=== PATIENT | female | born 1960 | race Caucasian/White ===

== ENCOUNTER → 2017-03-18 | Outpatient (CLI) | payer OTHER ==
--- NOTE | 2017-03-18 12:54 | REPMRS ---
Patient History The patient states she had a clinical breast exam in March 2017. Patient is postmenopausal and has history of other cancer at age 38. Family history of unknown cancer in father at age 50 or over, unknown cancer in maternal aunt at age 70, breast cancer in maternal aunt at age 80, and unknown cancer in paternal grandmother at age 40. Benign excisional biopsy of the left breast. Took hormonal contraceptives for 7 years. Took estrogen for 6 months. Digital Mammo Screening Bilat: March 18, 2017 - Exam #: [id number] Bilateral CC and MLO view(s) were taken. Technologist: Wanda Oleary, Technologist Prior study comparison: December 13, 2015, digital bilateral screening mammo, performed at [facility]. June 14, 2014, bilateral bilat screen digital mammo, performed at [facility] June 09, 2013, bilateral bilat screen digital mammo, performed at [facility] ([facility] FINDINGS: There are scattered fibroglandular densities. There has been no change in the appearance of the mammogram from the prior studies. There is a mild amount of scattered fibroglandular density which is fairly symmetric. There is no interval development of dominant mass, architectural distortion, or clustered microcalcification suggestive of malignancy. ASSESSMENT: BI-RADS/ACR category 1 mammogram. Negative. Recommendation Routine screening mammogram in 1 year (for women over age 40). This mammogram was interpreted with the aid of an FDA-approved computer-aided dectection system. Electronically Signed By: Dale House MD 03/18/17 [id number]
== END ==
LOC: M RAD 10:54
PROVIDERS: ATTEND Internal Medicine
DX: Z12.31 Encounter for screening mammogram for malignant neoplasm of breast (principal); Z92.0 Personal history of contraception

== ENCOUNTER → 2018-05-19 | Outpatient (CLI) | payer OTHER | LOC: M WHC 15:29 | DX: M85.80 Other specified disorders of bone density and structure, unspecified site (principal) | CPT/HCPCS: 77080 ==

== ENCOUNTER → 2019-05-03 | Outpatient (CLI) | payer OTHER ==
--- NOTE | 2019-05-04 08:55 | REP ---
MRI LEFT SHOULDER: TECHNIQUE: Axial T2 fat sat, gradient echo, sagittal oblique T2 fat sat, coronal oblique T1, T2 fat sat. There is increased signal involving the subscapularis tendon on T2-weighted images compatible with a moderate degree of tendinopathy and likely a partial tear. There is mild surrounding fluid. There is mild tendinopathy of the supraspinatus tendon. There is mild hypertrophic degenerative change of the acromioclavicular joint with downward sloping of the acromion, which is type 1. Biceps tendon is within the bicipital groove without significant tenosynovitis. There is no Hill-Sachs deformity. No abnormal signal is seen in the deltoid muscle. There is fraying of the biceps labral complex. There may be a tear of the anterior aspect of the inferior labrum. There is mild chondromalacia of the glenohumeral joint. Mild subchondral marrow edema is seen in the acromion along the acromioclavicular joint. There is a relatively normal amount of joint fluid. IMPRESSION: Moderate subscapularis tendinopathy with a partial tear. Mild supraspinatus tendinopathy. Mild hypertrophic degenerative changes of acromioclavicular joint with downward sloping of a type 1 acromion. There is fraying at the biceps labral complex. There may be a tear of the anterior aspect of the inferior labrum. Electronically Signed by Seth Schwartz MD 05/04/2019 12:31 P
== END ==
LOC: M RAD 17:14
PROVIDERS: ATTEND Orthopaedic Surgery Sports Medicine
DX: M65.812 Other synovitis and tenosynovitis, left shoulder (principal); M19.012 Primary osteoarthritis, left shoulder

== ENCOUNTER → 2019-05-07 | Outpatient (CLI) | payer OTHER ==
--- NOTE | 2019-05-07 17:05 | REPMRS ---
Patient History The patient states she had a clinical breast exam in March 2019. Family history of breast cancer at age 80 in maternal aunt, unknown cancer at age 50 or over in father, unknown cancer at age 40 in paternal grandmother, unknown cancer at age 70 in maternal aunt. Benign excisional biopsy of the left breast. Took hormonal contraceptives for 7 years. Took estrogen for 6 months. 3D TOMOSYNTHESIS WAS PERFORMED. Digital Mammo Screening Bilat: May 07, 2019 - Exam #: [id number] Bilateral CC and MLO view(s) were taken. Technologist: Patsy Ambrose, Technologist Prior study comparison: May 06, 2018, bilateral digital mammo screening bilat performed at [facility]. March 18, 2017, bilateral digital mammo screening bilat performed at [facility]. FINDINGS: There are scattered fibroglandular densities. There has been no change in the appearance of the mammogram from the prior studies. There is a mild amount of residual fibroglandular tissue which is fairly symmetric. There is no interval development of dominant mass, architectural distortion, or clustered microcalcification suggestive of malignancy. Assessment: BI-RADS/ACR category 1 mammogram. Negative Mammogram. Recommendation Routine screening mammogram in 1 year (for women over age 40). This mammogram was interpreted with the aid of an FDA-approved computer-aided dectection system. Electronically Signed By: Seth Schwartz MD 05/07/19 [id number]
== END ==
LOC: M RAD 13:28
PROVIDERS: ATTEND Internal Medicine
DX: Z12.31 Encounter for screening mammogram for malignant neoplasm of breast (principal); Z80.3 Family history of malignant neoplasm of breast

== ENCOUNTER → 2020-06-08 | Outpatient (CLI) | payer OTHER ==
--- NOTE | 2020-06-08 17:00 | REPMRS ---
Patient History The patient states she had a clinical breast exam in 2019. Family history of breast cancer at age 80 in maternal aunt, unknown cancer at age 50 or over in father, unknown cancer at age 40 in paternal grandmother, unknown cancer at age 70 in maternal aunt. Benign excisional biopsy of the left breast. Took hormonal contraceptives for 7 years. Took estrogen for 6 months. 3D TOMOSYNTHESIS WAS PERFORMED. [facility] lifetime risk for breast cancer is 8.5%. VOLPARA DENSITY A. Digital Woman Screen Mammo: June 08, 2020 - Exam #: [id number] Bilateral CC and MLO view(s) were taken. Technologist: Kimberly Foster, Technologist Prior study comparison: May 07, 2019, bilateral digital mammo screening bilat, performed at [facility]. May 06, 2018, bilateral digital mammo screening bilat, performed at [facility]. FINDINGS: There are scattered fibroglandular densities. There has been no change in the appearance of the mammogram from the prior studies. There is a mild amount of residual fibroglandular tissue which is fairly symmetric. There is no interval development of dominant mass, architectural distortion, or clustered microcalcification suggestive of malignancy. Assessment: BI-RADS/ACR category 1 mammogram. Negative Mammogram. Recommendation Routine screening mammogram in 1 year (for women over age 40). This mammogram was interpreted with the aid of an FDA-approved computer-aided dectection system. Electronically Signed By: Seth Schwartz MD 06/08/20 [id number]
== END ==
LOC: M WHC 15:58
PROVIDERS: ATTEND Internal Medicine
DX: Z12.31 Encounter for screening mammogram for malignant neoplasm of breast (principal); Z80.9 Family history of malignant neoplasm, unspecified

== ENCOUNTER → 2020-07-06 | Outpatient (REF) | payer OTHER | LOC: M LAB REF 14:05 | PROVIDERS: ATTEND Internal Medicine | DX: E66.09 Other obesity due to excess calories (principal); M85.80 Other specified disorders of bone density and structure, unspecified site ==

== ENCOUNTER → 2021-04-26 | Outpatient (REF) | payer OTHER | LOC: M LAB REF 11:15 | PROVIDERS: ATTEND Internal Medicine | DX: R74.8 Abnormal levels of other serum enzymes (principal) ==

== ENCOUNTER → 2021-05-08 | Outpatient (REF) | payer OTHER | LOC: M LAB REF 16:24 | PROVIDERS: ATTEND Internal Medicine | DX: R74.8 Abnormal levels of other serum enzymes (principal) ==

== ENCOUNTER → 2021-09-13 | Outpatient (REF) | payer OTHER | LOC: M LAB REF 11:34 | PROVIDERS: ATTEND Internal Medicine | DX: R94.5 Abnormal results of liver function studies (principal) ==

== ENCOUNTER → 2021-09-20 | Outpatient (CLI) | payer OTHER ==
--- NOTE | 2021-09-20 12:40 | REPMRS ---
Patient History The patient states she had a clinical breast exam in August 2021. Patient is postmenopausal and has history of other cancer at age 38. Family history of breast cancer at age 80 in maternal aunt, unknown cancer at age 50 or over in father, unknown cancer at age 40 in paternal grandmother, unknown cancer at age 70 in maternal aunt. Benign excisional biopsy of the left breast. Took hormonal contraceptives for 7 years. Took estrogen for 6 months. Tomosynthesis is performed. Volpara breast density is a. [facility] lifetime risk of breast cancer 8.2%. Moderna vaccine 01/31/21 left arm. 02/28/21 left arm. 20 lb intentional weight loss. Patient states no breast complaints today. Patient has signed MRS History Sheet. Digital Woman Screen Mammo: September 20, 2021 - Exam #: [id number] Bilateral CC and MLO view(s) were taken. Technologist: RT Marino Prior study comparison: June 08, 2020, bilateral digital woman screen mammo performed at [facility]. May 07, 2019, bilateral digital mammo screening bilat, performed at [facility]. FINDINGS: There are scattered fibroglandular densities. There has been no change in the appearance of the mammogram from the prior studies. There is a mild amount of residual fibroglandular tissue which is fairly symmetric. There is no interval development of dominant mass, architectural distortion, or clustered microcalcification suggestive of malignancy. Assessment: BI-RADS/ACR category 1 mammogram. Negative Mammogram. Recommendation Routine screening mammogram in 1 year (for women over age 40). This mammogram was interpreted with the aid of an FDA-approved computer-aided dectection system. Electronically Signed By: Seth Schwartz MD 09/20/21 [id number]
== END ==
LOC: M WHC 11:28
PROVIDERS: ATTEND Internal Medicine
DX: Z12.31 Encounter for screening mammogram for malignant neoplasm of breast (principal)

== ENCOUNTER 2022-05-31 11:34 | Inpatient (IN) | payer OTHER ==
[~2022-05-31] VITALS: Ht 167.6 cm; Wt 100.0 kg
[2022-05-31] MEDS ORDERED: ASMA16.7 INH (11:51)
[2022-05-31] MEDS ORDERED: MONT10TA97 PO (11:51)
[2022-05-31] MEDS ORDERED: SERT50TA29 PO (11:51)
[2022-05-31] MEDS ORDERED: PERCOCET 5MG/325MG TAB PO ONE (12:55)
[2022-05-31 14:08] LABS: RSV AMPLIFICATION NEGATIVE (NEGATIVE)
[2022-05-31] MEDS ORDERED: CETIRIZINE (ZyrTEC) 10 MG TAB PO ONE (14:35)
[2022-05-31] MEDS ORDERED: PROB250C PO (14:40)
[2022-05-31] MEDS ORDERED: IBUP200C27 PO (14:40)
[2022-05-31] MEDS ORDERED: FLUTISP NARES (14:40)
[2022-05-31] MEDS ORDERED: ACET-907 PO (14:40)
[2022-05-31] MEDS ORDERED: VITA100T59 PO (14:40)
[2022-05-31] MEDS ORDERED: ZINC1TAB2 PO (14:40)
[2022-05-31] MEDS ORDERED: VITA100093 PO (14:40)
[2022-05-31] MEDS ORDERED: HOME MED LIST COMPLETE! XX SCH (14:45)
[2022-05-31 15:14] LABS: HEMATOCRIT 41.9 % (36.0-47.0); HEMOGLOBIN 13.4 g/dl (12.0-15.5); MEAN CORPUSCULAR HEMOGLOBIN 30.3 pg (27.0-33.0); MEAN CORPUSCULAR VOLUME 94.8 fl (80.0-96.0); PLATELET COUNT, AUTOMATED 355 10^3/uL (150-450); RED BLOOD COUNT 4.42 10^6/uL (4.00-5.40); WHITE BLOOD COUNT 9.5 10^3/uL (4.0-10.0)
[2022-05-31 15:40] LABS: BLOOD UREA NITROGEN 9 MG/DL (7-18); CARBON DIOXIDE LEVEL 29 MEQ/L (21-32); CHLORIDE LEVEL 108 MEQ/L (98-107); CREATININE FOR GFR 0.65 MG/DL (0.55-1.30); GLOMERULAR FILTRATION RATE > 60.0 (>45); GLUCOSE, FASTING 106 MG/DL (70-100); POTASSIUM SERUM 3.8 MEQ/L (3.5-5.1); SODIUM LEVEL 144 MEQ/L (136-145)
[2022-05-31 16:30] VITALS: BP 114/65
[2022-05-31] MEDS: ACETAMINOPHEN 500 MG TAB PO SCH ×2 (17:04→20:15)
[2022-05-31] MEDS: oxyCODONE 5MG TAB PO PRN (18:33)
[2022-05-31] MEDS: MONTELUKAST 10 MG TAB PO SCH (20:13)
[2022-05-31 20:30] VITALS: BP 116/65
[2022-05-31] MEDS ORDERED: ALBUTEROL 90 MCG/ACT 8GM HFA INHALER INH PRN (21:55)
[2022-06-01] MEDS: oxyCODONE 5MG TAB PO PRN ×4 (02:07→13:06)
[2022-06-01 05:39] VITALS: BP 117/66
[2022-06-01 06:31] LABS: HEMOGLOBIN 13.2 g/dl (12.0-15.5); MEAN CORPUSCULAR HEMOGLOBIN 31.2 pg (27.0-33.0); MEAN CORPUSCULAR HGB CONC 32.2 g/dl (32.0-36.5); MEAN CORPUSCULAR VOLUME 96.9 fl (80.0-96.0); PLATELET COUNT, AUTOMATED 294 10^3/uL (150-450); RED BLOOD COUNT 4.23 10^6/uL (4.00-5.40); WHITE BLOOD COUNT 7.6 10^3/uL (4.0-10.0)
[2022-06-01 06:43] LABS: INR 0.92; PROTHROMBIN TIME 12.8 SECONDS (12.7-14.5)
[2022-06-01 06:57] LABS: ALBUMIN 2.9 GM/DL (3.2-5.2); ALT/SGPT 16 U/L (12-78); BILIRUBIN,TOTAL 0.6 MG/DL (0.2-1.0); BLOOD UREA NITROGEN 10 MG/DL (7-18); CALCIUM LEVEL 8.5 MG/DL (8.8-10.2); CARBON DIOXIDE LEVEL 25 MEQ/L (21-32); CHLORIDE LEVEL 111 MEQ/L (98-107); CREATININE FOR GFR 0.58 MG/DL (0.55-1.30); GLOMERULAR FILTRATION RATE > 60.0 (>45); GLUCOSE, FASTING 108 MG/DL (70-100); POTASSIUM SERUM 3.9 MEQ/L (3.5-5.1); SODIUM LEVEL 144 MEQ/L (136-145); TOTAL PROTEIN 6.2 GM/DL (6.4-8.2)
[2022-06-01] MEDS: ACETAMINOPHEN 500 MG TAB PO SCH ×3 (07:47→20:26)
[2022-06-01] MEDS ORDERED: MORPHINE 4 MG/ML 1ML VIAL/SYRINGE IV PRN (08:50)
[2022-06-01] MEDS ORDERED: ENOXAPARIN 40MG/0.4ML SYRINGE (J1650 PER 10MG) SC SCH (09:00)
[2022-06-01] MEDS ORDERED: fentaNYL 250 MCG/5 ML INJECTION As Ordered ONE (09:45)
[2022-06-01] MEDS ORDERED: MIDAZOLAM INJ 2MG/2ML VIAL (J2250 PER 1MG) As Ordered ONE (09:45)
[2022-06-01] MEDS ORDERED: ROCURONIUM BROMIDE 50 MG/5 ML VIAL As Ordered ONE (09:46)
[2022-06-01] MEDS ORDERED: propofoL 200 MG/20 ML VIAL As Ordered ONE ×2 (09:48→11:42)
[2022-06-01] MEDS ORDERED: LIDOCAINE 2% INJ 100 MG/5 ML SYRINGE As Ordered ONE (09:48)
[2022-06-01] MEDS ORDERED: dexameTHASONE 4 MG/ML 1ML VIAL (J1100 PER 1MG) As Ordered ONE (09:49)
[2022-06-01] MEDS ORDERED: ACETAMINOPHEN 1000MG 100ML IV BTL (OFIRMEV) (J0131 PER 10MG) As Ordered ONE (09:50)
[2022-06-01] MEDS ORDERED: BUPIVACAINE HCL 0.25% 10ML VIAL As Ordered ONE (10:20)
[2022-06-01] MEDS ORDERED: BUPIVACAINE LIPOSOME/PF 1.3% 20ML VIAL (13.3MG/ML)(EXPAREL) As Ordered ONE (10:20)
[2022-06-01] MEDS ORDERED: ceFAZolin 2 GM/D5W 50 ML IV BAG (J0690 PER 500MG) As Ordered ONE (10:20)
[2022-06-01] MEDS ORDERED: KETOROLAC 60MG 2ML VIAL As Ordered ONE (11:32)
[2022-06-01] MEDS ORDERED: ONDANSETRON 4MG 2ML VIAL As Ordered ONE (11:33)
[2022-06-01] MEDS ORDERED: SUGAMMADEX SODIUM 500 MG/5 ML VIAL (BRIDION) As Ordered ONE (11:37)
[2022-06-01] MEDS ORDERED: ONDANSETRON 4MG 2ML VIAL IV PRN (12:10)
[2022-06-01] MEDS ORDERED: HYDROMORPHONE HCL 0.5 MG/ 0.5 ML SYRINGE (J1170 PER 1) IV PRN (12:10)
[2022-06-01] MEDS ORDERED: LR 1,000 ML IV SCH (12:10)
[2022-06-01] MEDS: fentaNYL 100 MCG/2 ML INJECTION IV PRN ×3 (12:31→12:53)
[2022-06-01] MEDS ORDERED: fentaNYL 100 MCG/2 ML INJECTION As Ordered ONE (12:32)
[2022-06-01 13:23] VITALS: BP 140/79
[2022-06-01 14:00] VITALS: BP 133/75
[2022-06-01] MEDS: FLUTICASONE PROP 0.05% NASAL SPRAY 16 GM (FLONASE) NARES SCH (15:15)
[2022-06-01] MEDS: ceFAZolin SOD 2 GM in IV 1 EA IV SCH (18:17)
[2022-06-01] MEDS: MONTELUKAST 10 MG TAB PO SCH (20:25)
[2022-06-01 22:00] VITALS: BP 146/60; O2SAT 94
[2022-06-02] MEDS: ceFAZolin SOD 2 GM in IV 1 EA IV SCH (01:53)
[2022-06-02 02:00] VITALS: BP 135/67; O2SAT 94
[2022-06-02] MEDS: oxyCODONE 5MG TAB PO PRN ×3 (02:50→11:54)
[2022-06-02 06:00] VITALS: BP 133/68; O2SAT 95
[2022-06-02] MEDS: ACETAMINOPHEN 500 MG TAB PO SCH (07:26)
[2022-06-02] MEDS: FLUTICASONE PROP 0.05% NASAL SPRAY 16 GM (FLONASE) NARES SCH (07:27)
[2022-06-02] MEDS ORDERED: ASPIRIN 81MG ENTERIC TABLET PO SCH (09:00)
[2022-06-02] MEDS ORDERED: PERC5TAB12 PO (09:22)
[2022-06-02 10:00] VITALS: BP 103/53
== END 2022-06-02 13:15 | disposition home health service (06) | DRG 494 ==
LOC: M ED 11:34 → M ED INP 14:28 → ENRESERV 15:31 → M MS5PR 16:22
PROVIDERS: ADMIT Family Medicine; ATTEND Family Medicine
PROC: 0QSJ04Z Reposition Right Fibula with Internal Fixation Device, Open Approach (ICD-10-PCS; principal; 2022-06-01 12:00)
DX: S82.851A Displaced trimalleolar fracture of right lower leg, initial encounter for closed fracture (principal); W10.9XXA Fall (on) (from) unspecified stairs and steps, initial encounter; Y92.009 Unspecified place in unspecified non-institutional (private) residence as the place of occurrence of the external cause; Y93.89 Activity, other specified; Y99.8 Other external cause status; J30.2 Other seasonal allergic rhinitis; G47.33 Obstructive sleep apnea (adult) (pediatric); Z79.899 Other long term (current) drug therapy; Z88.1 Allergy status to other antibiotic agents; Z88.8 Allergy status to other drugs, medicaments and biological substances

== ENCOUNTER → 2022-06-19 | Outpatient (CLI) | payer OTHER ==
[~2022-06-19] MED LIST: ACET-907 PO; ASMA16.7 INH; FLUTISP NARES; IBUP200C27 PO; MONT10TA97 PO; PERC5TAB12 PO; PROB250C PO; SERT50TA29 PO; VITA100093 PO; VITA100T59 PO; ZINC1TAB2 PO
== END ==
LOC: M SOG 09:47
PROVIDERS: ATTEND Orthopaedic Surgery
DX: Z47.89 Encounter for other orthopedic aftercare (principal); Z96.7 Presence of other bone and tendon implants

== ENCOUNTER → 2022-07-05 | Outpatient (CLI) | payer OTHER | LOC: M SOG 08:02 | PROVIDERS: ATTEND Orthopaedic Surgery | DX: S82.841A Displaced bimalleolar fracture of right lower leg, initial encounter for closed fracture (principal) ==

== ENCOUNTER → 2022-07-23 | Outpatient (CLI) | payer OTHER | LOC: M SOG 10:39 | PROVIDERS: ATTEND Orthopaedic Surgery | DX: S82.851D Displaced trimalleolar fracture of right lower leg, subsequent encounter for closed fracture with routine healing (principal); W18.30XD Fall on same level, unspecified, subsequent encounter; Y92.009 Unspecified place in unspecified non-institutional (private) residence as the place of occurrence of the external cause ==

== ENCOUNTER → 2022-09-23 | Outpatient (CLI) | payer OTHER | LOC: M SOG 07:54 | PROVIDERS: ATTEND Orthopaedic Surgery | DX: S82.851D Displaced trimalleolar fracture of right lower leg, subsequent encounter for closed fracture with routine healing (principal); W18.30XD Fall on same level, unspecified, subsequent encounter ==

== ENCOUNTER → 2022-09-26 | Outpatient (CLI) | payer OTHER | LOC: M SOG 07:50 | PROVIDERS: ATTEND Orthopaedic Surgery | DX: S82.851D Displaced trimalleolar fracture of right lower leg, subsequent encounter for closed fracture with routine healing (principal); W18.30XD Fall on same level, unspecified, subsequent encounter ==

== ENCOUNTER → 2022-12-10 | Outpatient (REF) | payer OTHER ==
[2022-12-15 23:10] LABS: Alkaline Phosphatase Iso-Bone 34 % (14-68); Alkaline Phosphatase Iso-Intes 1 % (0-18); Alkaline Phosphatase Iso-Liver 65 % (18-85); TOTAL ALK PHOS 158 IU/L (44-121)
== END ==
LOC: M LAB REF 12:11
PROVIDERS: ATTEND Internal Medicine
DX: R74.8 Abnormal levels of other serum enzymes (principal)

== ENCOUNTER → 2023-01-15 | Outpatient (CLI) | payer OTHER | LOC: M WHC 11:54 | PROVIDERS: ATTEND Internal Medicine | DX: Z12.31 Encounter for screening mammogram for malignant neoplasm of breast (principal); M81.0 Age-related osteoporosis without current pathological fracture ==

== ENCOUNTER → 2023-01-15 | Outpatient (REF) | payer OTHER ==
[2023-01-15 22:29] LABS: HEPATITIS B SURFACE ANTIGEN NEGATIVE (NEGATIVE)
[2023-01-15 22:50] LABS: HEPATITIS C VIRUS ABY INDEX 0.1 INDEX (<0.8)
[2023-01-15 22:51] LABS: HEPATITIS B CORE ANTIBODY IGM NEGATIVE (NEGATIVE)
== END ==
LOC: M LAB REF 16:19
PROVIDERS: ATTEND Internal Medicine
DX: R94.5 Abnormal results of liver function studies (principal)

== ENCOUNTER → 2023-02-27 | Outpatient (CLI) | payer OTHER ==
[~2023-02-27] MED LIST changes: -ASMA16.7 INH; +MOME13HF4 INH
== END ==
LOC: M WHC 08:22
PROVIDERS: ATTEND Internal Medicine
DX: R74.8 Abnormal levels of other serum enzymes (principal)

== ENCOUNTER → 2023-04-04 | Outpatient (REF) | payer OTHER ==
[~2023-04-04] MED LIST changes: +FLUT50SP17 NARES; -FLUTISP NARES
== END ==
LOC: M LAB REF 14:39
PROVIDERS: ATTEND Physician Assistant Medical
DX: E78.00 Pure hypercholesterolemia, unspecified (principal); R74.8 Abnormal levels of other serum enzymes

== ENCOUNTER → 2024-01-24 | Outpatient (REF) | payer OTHER ==
[~2024-01-24] MED LIST changes: -FLUT50SP17 NARES; +FLUTISP NARES
== END ==
LOC: M LAB REF 21:27
PROVIDERS: ATTEND Physician Assistant
DX: N30.01 Acute cystitis with hematuria (principal)

== ENCOUNTER → 2024-01-25 | Outpatient (CLI) | payer OTHER ==
[2024-01-25 13:17] LABS: BASO # 0.1 10^3/uL (0.0-0.2); BASO % 0.8 % (0.0-1.0); EOS # 0.2 10^3/uL (0.0-0.5); HEMATOCRIT 41.1 % (36.0-47.0); HEMOGLOBIN 13.5 g/dl (12.0-15.5); LYMPH # 2.7 10^3/uL (1.5-5.0); LYMPH % 34.6 % (24.0-44.0); MEAN CORPUSCULAR HEMOGLOBIN 30.8 pg (27.0-33.0); MEAN CORPUSCULAR HGB CONC 32.8 g/dl (32.0-36.5); MEAN CORPUSCULAR VOLUME 93.8 fl (80.0-96.0); MONO # 0.7 10^3/uL (0.0-0.8); MONO % 8.5 % (2.0-8.0); NEUTROPHILS # 4.1 10^3/uL (1.5-8.5); NEUTROPHILS % 52.8 % (36.0-66.0); PLATELET COUNT, AUTOMATED 323 10^3/uL (150-450); RED BLOOD COUNT 4.38 10^6/uL (4.00-5.40); WHITE BLOOD COUNT 7.8 10^3/uL (4.0-10.0)
[2024-01-25 13:40] LABS: ALBUMIN 3.6 G/DL (3.2-5.2); ALKALINE PHOSPHATASE 121 U/L (46-116); ALT/SGPT 33 U/L (7.0-40); AST/SGOT 52 U/L (<34); BILIRUBIN,TOTAL 0.6 MG/DL (0.3-1.2); BLOOD UREA NITROGEN 12 MG/DL (9-23); CALCIUM LEVEL 8.9 MG/DL (8.3-10.6); CARBON DIOXIDE LEVEL 30 MMOL/L (20-31); CHLORIDE LEVEL 108 MMOL/L (98-107); CREATININE FOR GFR 0.65 MG/DL (0.55-1.30); GLOMERULAR FILTRATION RATE > 60.0 (>45); GLUCOSE, FASTING 94 MG/DL (74-106); SODIUM LEVEL 141 MMOL/L (136-145); TOTAL PROTEIN 6.6 G/DL (5.7-8.2)
== END ==
LOC: M LAB 12:40
PROVIDERS: ATTEND Physician Assistant
DX: N30.01 Acute cystitis with hematuria (principal)

== ENCOUNTER → 2024-01-27 | Outpatient (CLI) | payer OTHER | LOC: M WHC 08:23 | PROVIDERS: ATTEND Internal Medicine | DX: Z12.31 Encounter for screening mammogram for malignant neoplasm of breast (principal) ==

== ENCOUNTER → 2024-04-12 | Outpatient (CLI) | payer OTHER | LOC: M RAD 10:32 | PROVIDERS: ATTEND Physician Assistant Medical | DX: M25.562 Pain in left knee (principal) ==

== ENCOUNTER → 2025-01-28 | Outpatient (CLI) | payer OTHER | LOC: M WHC 10:04 | PROVIDERS: ATTEND Internal Medicine | DX: Z12.31 Encounter for screening mammogram for malignant neoplasm of breast (principal) ==

== ENCOUNTER → 2025-03-17 | Outpatient (REF) | payer OTHER ==
[2025-03-21 13:37] LABS: RUBEOLA IgG ANTIBODY > 300.00 AU/mL (>16.49)
== END ==
LOC: M LAB REF 13:49
PROVIDERS: ATTEND Internal Medicine
DX: Z28.39 Other underimmunization status (principal)

== ENCOUNTER → 2025-10-07 | Outpatient (REF) | payer OTHER ==
[2025-10-07 17:50] LABS: APPEARANCE, URINE CLEAR (CLEAR); BACTERIA, URINE AUTO NEGATIVE (NEGATIVE); BILIRUBIN, URINE AUTO NEGATIVE (NEGATIVE); BLOOD, URINE BLOOD NEGATIVE (NEGATIVE); GLUCOSE, URINE (UA) AUTO NEGATIVE (NEGATIVE); KETONE, URINE AUTO NEGATIVE (NEGATIVE); LEUKOCYTE ESTERASE, URINE AUTO NEGATIVE (NEGATIVE); NITRITE, URINE AUTO NEGATIVE (NEGATIVE); PROTEIN, URINE AUTO NEGATIVE (NEGATIVE); RBC, URINE AUTO 0 /HPF (0-3); SPECIFIC GRAVITY URINE AUTO 1.016 (1.002-1.035); SQUAMOUS EPITHELIAL CELL UR AU 0 /HPF (0-6); UROBILINOGEN, URINE AUTO 0.2 mg/dL (0.0-2.0); WBC, URINE AUTO 0 /HPF (0-3)
== END ==
LOC: M LAB REF 17:01
PROVIDERS: ATTEND Urology
DX: R82.998 Other abnormal findings in urine (principal)

== ENCOUNTER → 2025-10-25 | Outpatient (CLI) | payer OTHER ==
[2025-10-25 18:25] LABS: PLATELET COUNT, AUTOMATED 387 10^3/uL (150-450)
== END ==
LOC: M PLALAB 14:09
PROVIDERS: ATTEND Urology
DX: D64.9 Anemia, unspecified (principal)